=== PATIENT | female | born 1990 | race Caucasian/White ===

== ENCOUNTER 2022-01-02 11:31 | Outpatient (CLI) | payer OTHER ==
[~2022-01-02 11:31] MED LIST: AMOX1TAB12 PO; FLONASE16 GM NS; NASONEX17 GM NS; ZYRTEC10 MG PO
[2022-01-02] MEDS ORDERED: PRENATAL CAPLE1 EAC1 PO (12:07)
== END 2022-01-02 21:02 | disposition home or self-care (01) ==
LOC: OBS/DEL 11:31
PROVIDERS: ATTEND Obstetrics & Gynecology
DX: O60.03 Preterm labor without delivery, third trimester (principal); O26.893 Other specified pregnancy related conditions, third trimester; Z3A.34 34 weeks gestation of pregnancy; O26.849 Uterine size-date discrepancy, unspecified trimester; O36.8199 Decreased fetal movements, unspecified trimester, other fetus